=== PATIENT | female | born 1975 | race African-American/Black ===

== ENCOUNTER 2016-12-26 12:46 | Outpatient (CLI) | payer OTHER ==
[~2016-12-26] VITALS: Ht 175.3 cm; Wt 105.0 kg
== END 2016-12-26 14:05 | disposition home or self-care (01) ==
LOC: M LDO 12:46
PROVIDERS: ATTEND Student in an Organized Health Care Education/Training Program
DX: O99.89 Other specified diseases and conditions complicating pregnancy, childbirth and the puerperium (principal); Z3A.30 30 weeks gestation of pregnancy; S76.012A Strain of muscle, fascia and tendon of left hip, initial encounter; X58.XXXA Exposure to other specified factors, initial encounter; Y93.9 Activity, unspecified; Y92.9 Unspecified place or not applicable; Y99.8 Other external cause status

== ENCOUNTER 2017-03-07 17:12 | Inpatient (IN) | payer OTHER ==
[~2017-03-07] VITALS: Ht 175.3 cm; Wt 111.0 kg
[2017-03-07 17:41] VITALS: BP 137/82
[2017-03-07] MEDS ORDERED: PRENTAB9 PO (18:30)
[2017-03-07] MEDS ORDERED: miSOPROStol 50 MCG 1/2 TAB (S0191) PO ONE (20:15)
[2017-03-07] MEDS ORDERED: LACTATED RINGER'S 1000 ML IV ONE (20:15)
[2017-03-07] MEDS ORDERED: PENICILLIN G POTASSIUM IV 5 MU in D5W MINI-BAG PLUS 100 ML IV ONE (20:15)
--- NOTE | 2017-03-07 20:57 | HPE ---
DATE OF ADMISSION: 03/07/2017 41-year-old 3, para 1, abortus 1, LMP 05/24/2016, EDC 02/28/2017 at 41 weeks for induction of labor. History is she is an AMA, A1GDM diabetic, low REYNOLD, BMI of 35.1, GBS positive and category two strip. PAST HISTORY: 2000 at 40 weeks, female 7 pounds 6 ounces. No epidural, delivered in [place]. In 1999 had a spontaneous with D and C. On physical examination, no acute distress. Symphysis fundus height is 41, vertex -4 station, 2 cm, soft, 50% effaced, not well applied to the cervix. Blood pressure is 137/82, respirations 16, pulse 82, temperature 98.2. 1.020 urine pH 6, +1 of protein. Labs show B+, HIV negative, hepatitis negative, RPR negative, rubella immune. Varicella immune. Pap normal. Urine GBS positive. Gonorrhea and chlamydia negative. 1-hour glucose early was 124, 28 weeks glucose was 154. Her 3-hour glucose: Her fasting 93, 1 hour is 174, 2-hour was 197 and 3-hour 141. Rest of the examination unremarkable. Symphysis fundus height is 40, vertex as mentioned, category one strip. Four quadrant bowel sounds are noted. She is normocephalic, atraumatic. Neck full range of motion. Pupils equal and reactive to light. Distal pulses symmetric. No evidence of DVT, PE or superficial phlebitis. No wheezes or rhonchi. No CVA tenderness. No rashes, lesions or pruritus. No arthralgia or myalgia. No complaints of cough, wheezes, shortness of breath or dyspnea on exertion. No chest pain. No bleeding. Neurologically complete. No incontinence, urgency or frequency. No nausea, vomiting, diarrhea or constipation. Questionable diabetic issues. 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 Past medical, surgery, and family history noncontributory. She does not smoke, drink, or abuse drugs. There is no domestic violence. In summary we have an AMA for induction of labor with low fluid and a category two strip. GBS prophylaxis with Cytotec orally and hydration. Planning on epidural at the time. Safe to proceed. Answered all questions.
[2017-03-07 21:02] LABS: MEAN CORPUSCULAR HEMOGLOBIN 29.5 pg (27.0-33.0); MEAN CORPUSCULAR HGB CONC 33.9 g/dl (32.0-36.5); MEAN CORPUSCULAR VOLUME 87.1 fl (80.0-96.0); RED CELL DISTRIBUTION WIDTH 14.3 % (11.5-14.5); WHITE BLOOD COUNT 7.7 10^3/uL (4.0-10.0)
[2017-03-07 22:40] VITALS: BP 120/67
[2017-03-08] VITALS (46 sets, daily range): BP systolic 106–173; BP diastolic 52–97
[2017-03-08] MEDS ORDERED: miSOPROStol 50 MCG 1/2 TAB (S0191) PO ONE (01:00)
[2017-03-08] MEDS ORDERED: LR 1,000 ML IV SCH (10:51)
[2017-03-08] MEDS ORDERED: PENICILLIN G POTASSIUM IV 5 MU in D5W MINI-BAG PLUS 100 ML IV ONE (11:00)
[2017-03-08] MEDS ORDERED: OXYTOCIN DRIP 30 UNITS in APPROPRIATE DILUENT 1 EA IV SCH ×2 (11:00→23:36)
[2017-03-08] MEDS: PENICILLIN G POTASSIUM IV 2.5 MU in D5W 100 ML IV SCH ×2 (15:10→19:12)
[2017-03-08] MEDS ORDERED: INFLUENZA QUADRIVALENT PF VACCINE 0.5ML SYRINGE (90686) IM SCH (19:00)
[2017-03-08] MEDS ORDERED: FENTANYL 2MCG/ML ROPIVACAINE 0.2% IN 0.9% NACL 200ML IVBAG As Ordered ONE (19:13)
[2017-03-08] MEDS ORDERED: EPIDURAL COMMENT XX SCH ×2 (20:15)
[2017-03-08] MEDS ORDERED: FENTANYL/ROPIVACAINE/NACL BAG 200 ML EPIDURAL SCH ×2 (20:15)
[2017-03-08] MEDS ORDERED: ONDANSETRON 4MG/2ML VIAL (J2405) IV PRN ×2 (20:15)
[2017-03-08] MEDS ORDERED: EPIDURAL/PCA KEYS XX PRN ×2 (20:15)
[2017-03-08] MEDS ORDERED: diphenhydrAMINE INJ 50MG/ML VIAL (J1200) IV PRN ×2 (20:15)
[2017-03-08] MEDS ORDERED: NALOXONE INJ 0.4 MG/1 ML VIAL (J2310) IV PRN ×2 (20:15)
[2017-03-08] MEDS ORDERED: REFRIGERATOR IV KEYS XX PRN ×2 (20:15)
[2017-03-08] MEDS ORDERED: ePHEDrine SULFATE 25 MG/5 ML(5MG/ML) SYRINGE IV PRN ×2 (20:15)
[2017-03-08] MEDS ORDERED: LACTATED RINGER'S 1000 ML IV PRN ×2 (20:15)
--- NOTE | 2017-03-08 20:17 | IPNPDOC ---
Text Note Date of Service The patient was seen on 03/08/17. NOTE SBAR at 1930. 41 y/o at 41.1 admission for IOL due to late-term gestation and relative oligohydramios. c/b GDM A1. GBS + receiving PCN prophylaxis. Receiving oxytocin induction, currently at 10 mu/min. Just now s/p epidural. Feeling much better. Cx /-1, adeq pelvis. Recheck in 2 hrs, sooner prn. Sessions VS,Abbi I+O VSAbbi I+O Laboratory Tests 03/07/17 20:48 Red Blood Count 4.03, Mean Corpuscular Volume 87.1, Mean Corpuscular Hemoglobin 29.5, Mean Corpuscular Hemoglobin Concent 33.9, Red Cell Distribution Width 14.3 Vital Signs Date Time Temp Pulse Resp B/P (MAP) Pulse Ox O2 Delivery O2 Flow Rate FiO2 03/08/17 18:01 76 110/60 (77) 03/08/17 17:02 20 03/08/17 15:01 98.0 I&O- Last 24 Hours up to 6 AM 03/09/17 06:00 Intake Total 3086 ml Output Total 1600 ml Balance 1486 ml SESSIONS,RICKY Ambrocio MD Mar 08, 2017 20:17
--- NOTE | 2017-03-08 22:11 | IPNPDOC ---
Text Note Date of Service The patient was seen on 03/08/17. NOTE FHT Cat 2, pit halved a while ago when had repetitive lates, now resolved, also had a run of minimal variability now improved. A few early's noted, single late with cx check just now. Watching closely. Cx 8-9/100/0/EVANGELISTA. AROM with minimal clr fluid. No mec noted. Will check in 1 hr, sooner prn. Sessions VS,Abbi, I+O VS, Abbi, I+O Vital Signs Date Time Temp Pulse Resp B/P (MAP) Pulse Ox O2 Delivery O2 Flow Rate FiO2 03/08/17 20:39 69 130/64 (86) 03/08/17 20:07 98.3 18 I&O- Last 24 Hours up to 6 AM 03/09/17 06:00 Intake Total 3086 ml Output Total 1600 ml Balance 1486 ml KEITH,RICKY Ambrocio MD Mar 08, 2017 22:11
[2017-03-08] MEDS ORDERED: DIBUCAINE 1% OINTMENT 30GM TOP PRN (23:45)
[2017-03-08] MEDS ORDERED: METOCLOPRAMIDE INJ 10MG/2ML VIAL (J2765) IV PRN (23:45)
[2017-03-08] MEDS ORDERED: ACETAMINOPHEN TAB 650MG DOSE (2X325MG) PO PRN (23:45)
[2017-03-08] MEDS ORDERED: RHOGAM 300 MCG (1500 IU) INJ (J2790) IM SCH (23:45)
[2017-03-08] MEDS ORDERED: MEASLES,MUMPS,RUBELLA VACCINE INJ (MMR-II) (90707) SC SCH (23:45)
--- NOTE | 2017-03-08 23:50 | DNPDOC ---
[facility] Delivery Note Delivery Note DATE OF DELIVERY: [id number] @ 2316 PREDELIVERY DIAGNOSIS: 41 1/7 weeks' gestation and labor. POST DELIVERY DIAGNOSIS: Delivered. PROCEDURE: outlet vacuum vaginal delivery CNA CAREGIVER: Dr. Parker ANESTHESIA: Epidural ESTIMATED BLOOD LOSS: 200 mL. FINDINGS: 3470 gm, 7 pound 10 ounce male infant, Score 7/9, nuchal cord times 1, loose DELIVERY SUMMARY: Counseled to undergo outlet vacuum due to persistent lates with pushing. Good effort and adeq pelvis, easily pushes vtx to +4 and no caput. EFW 3200 gm. Kiwi Vacuum placed mid sagitally 1-2 cm from the post fontanelle. Checked, no vag involvement. One pull and one placement, no pop- offs, first set of ctx'ds with the vac on effected vtx delivery. Restituted to ROT, no delay of the left ant shoulder, some delay of the right post shoulder, noted that the elbow del'd prior to the shoulder, compound right arm. Cord clamped and cut. Cord blood for typing. Placenta del'd intact with slight traction and fundal massage, pit wide open. Fundus firm. 1st degr lac repaired with 3-0 vicryl. Good cosmesis/hemostasis. Sessions MD PARKER,RICKY Ambrocio MD Mar 08, 2017 23:50
[2017-03-09 01:40] VITALS: BP 134/65
[2017-03-09] MEDS: IBUPROFEN 800 MG TAB PO PRN ×2 (01:51→16:32)
[2017-03-09 06:29] VITALS: BP 128/61
--- NOTE | 2017-03-09 07:00 | IPNPDOC ---
Text Note Date of Service The patient was seen on 03/09/17. NOTE PPD1 prog note States feeling well, no complaints. No heavy VB. Pain controlled. Voiding, ambulatory. Bonding well and breast feeding well. VSSAF CTAB RRR Ut at U-2, firm Ext no CCE a/p: Doing well. d/c likely tomorrow. Sessions VS,Abbi, I+O VS, Abbi, I+O Vital Signs Date Time Temp Pulse Resp B/P (MAP) Pulse Ox O2 Delivery O2 Flow Rate FiO2 03/09/17 06:29 98.2 67 18 128/61 (83) 03/09/17 01:40 95 Room Air SESSIONS,RICKY Ambrocio MD Mar 09, 2017 07:00
[2017-03-09] MEDS: DOCUSATE SODIUM 100 MG CAP PO SCH ×2 (07:55→20:16)
[2017-03-09] MEDS: PRENATAL VITAMINS CHEWABLE TABLET PO SCH (07:55)
[2017-03-09 10:00] VITALS: BP 122/60
[2017-03-09 17:56] VITALS: BP 122/65
[2017-03-10 05:45] VITALS: BP 132/64
[2017-03-10] MEDS: DOCUSATE SODIUM 100 MG CAP PO SCH (07:56)
[2017-03-10] MEDS: PRENATAL VITAMINS CHEWABLE TABLET PO SCH (07:57)
== END 2017-03-10 11:25 | disposition home or self-care (01) | DRG 775 ==
LOC: M LDI 17:12 → M OBS 03-09 02:36
PROVIDERS: ADMIT Obstetrics & Gynecology; ATTEND Obstetrics & Gynecology
PROC: 10D07Z6 Extraction of Products of Conception, Vacuum, Via Natural or Artificial Opening (ICD-10-PCS; principal; 2017-03-08)
PROC: 0HQ9XZZ Repair Perineum Skin, External Approach (ICD-10-PCS; 2017-03-08)
PROC: 3E0DXGC Introduction of Other Therapeutic Substance into Mouth and Pharynx, External Approach (ICD-10-PCS; 2017-03-08)
DX: O41.03X0 Oligohydramnios, third trimester, not applicable or unspecified (principal); O48.0 Post-term pregnancy; Z37.0 Single live birth; Z3A.41 41 weeks gestation of pregnancy; O99.820 Streptococcus B carrier state complicating pregnancy; O70.0 First degree perineal laceration during delivery; O69.82X0 Labor and delivery complicated by other cord entanglement, without compression, not applicable or unspecified; O24.419 Gestational diabetes mellitus in pregnancy, unspecified control; O09.523 Supervision of elderly multigravida, third trimester